=== PATIENT | female | born 1975 | race Caucasian/White ===

== ENCOUNTER 2017-08-23 19:12 | Emergency (ER) | payer MEDICAID, SELFPAY ==
[2017-08-23 19:13] VITALS: BP 138/87; PULSE 100; RESP 18; TEMP 36.6; O2SAT 100; BMI 23.3
--- NOTE | 2017-08-23 19:39 | ED.RN ---
[facility] TO HAVE THE LANDSCAPE ENGINEERCONCESSION STAND ATTENDANT TALK TO DR. HUYNH. KEISHA IS LANDSCAPE ENGINEER AND STATED HE IS AT THE CORRECTION AND CAN CALL US BACK IN AN HOUR.
[2017-08-23] MEDS: LORazepam 1 MG Tablet PO (19:41)
--- NOTE | 2017-08-23 19:53 | NURSING ---
WAITING TO HEAR BACK FROM THE COUNSELING CENTER.
--- NOTE | 2017-08-23 20:42 | ED.RN ---
KEISHA FROM [facility] JUST CALLED BACK TO SPEAK WITH DR. HUYNH
--- NOTE | 2017-08-23 21:35 | NURSING ---
[facility] HAS ARRIVED AND IS TALKING WITH THE PT.
--- NOTE | 2017-08-23 21:42 | ED.RN ---
KEISHA IS HERE TO SEE PATIENT.
[2017-08-23 22:02] VITALS: PULSE 97; RESP 16; O2SAT 100
--- NOTE | 2017-08-23 22:05 | EKG12_ITS ---
Test Reason : MEDICAL RELEASE Blood Pressure : / mmHG Vent. Rate : 085 BPM Atrial Rate : 085 BPM P-R Int : 174 ms QRS Dur : 086 ms QT Int : 364 ms P-R-T Axes : 063 047 055 degrees QTc Int : 433 ms Normal sinus rhythm Normal ECG Confirmed by ZACHARY AGUILAR, MONTRELL ([id number]), editorial cartoonist VICTOR M EVANS ([id number]) on 08/27/2017 2:19:11 PM Referred By: LINO Confirmed By:MONTRELL SHARMA MD
--- NOTE | 2017-08-23 22:11 | NURSING ---
PT TOLD CRISIS THAT SHE IS NOW HAVING AUDITORY HALLUCINATIONS AND WANTING TO KILL HERSELF. WHICH WAS NOT STATED TO ME OR THE DOCTOR PREVIOUSLY, THE PT HAD REPEATEDLY SAID THAT SHE WANTED TO BE ADMITTED TO A FACILITY.
[2017-08-23 22:28] LABS: Absolute Lymphocyte Count 2.91 X10^3/ul (0.83-4.51); Absolute Neutrophil Count 4.3 X10^3/uL (2.0-7.7); Basophil# 0.18 X10^3/uL; Basophil% 2.1 % (0-1); Eosinophil# 0.33 X10^3/uL; Eosinophils% 3.8 % (0-5); Hematocrit 30.7 % (37-47); Hemoglobin 9.1 g/dl (12.0-15.0); Lymphocyte # 2.91 X10^3/ul (4.0); Lymphocyte % 33.8 % (19-41); Mean Corp Hgb Conc 29.6 g/gl (32-36); Mean Corpuscular Hgb 23.3 pg (27.0-32.0); Mean Corpuscular Volume 78.7 fL (81-99); Mean Platelet Vol. 9.2 fl (6.2-12.0); Monocyte# 0.83 X10^3/uL; Monocyte% 9.7 % (0-10); Neutrophil # 4.34 X10^3/uL (2.7-7.7); Neutrophil % 50.5 % (47-70); POSITIVE COUNT NO; POSITIVE DIFFERENTIAL NO; POSITIVE MORPHOLOGY NO; Platelet Count 448 K/mm3 (150-450); RBC Distribution Width CV 19.5 % (11.6-14.6); RBC Distribution Width SD 56.1 fl (35.1-43.9); White Blood Count 8.6 K/mm3 (4.4-11.0)
[2017-08-23 22:41] LABS: Anion Gap 9 (5-15); BUN 17 mg/dL (7-18); BUN/Creat Ratio 17.5 RATIO (10-20); Calcium,Total 8.3 mg/dL (8.5-10.1); Chloride 110 mmol/L (98-107); Creatinine, Serum 0.97 mg/dL (0.55-1.02); EST Glomerular Filtration Rate 68 mL/min (>60); Est Glom Filt Rate - Afr Amer 82 mL/min (>60); Estimated Creatinine Clearance 70.07 ml/min; Glucose 119 mg/dL (74-106); Potassium 3.8 mmol/L (3.5-5.1); Sodium Level 142 mmol/L (136-145)
[2017-08-23 22:43] LABS: AST(SGOT) 17 U/L (15-37); Alanine Aminotransfer ALT/SGPT 19 U/L (13-56); Alkaline Phosphatase 100 U/L (45-117); Bilirubin, Direct < 0.05 mg/dL (0.00-0.30); Globulin 4.3 g/dL (2.2-4.2); Protein, Total 7.3 g/dL (6.4-8.2)
[2017-08-23 22:51] LABS: Alcohol, Blood (Medical)-Serum < 3.0 mg/dL
[2017-08-23 22:53] LABS: Bacteria 0 SEEN /hpf (None Seen); Mucous, Urine 0 SEEN /hpf (<or=2+)
[2017-08-23 22:55] LABS: Color, Urine Yellow (Yellow); Glucose, Dipstick Normal (Normal); Ketone-Dipstick 5 mg/dl (Negative); Leukocyte Esterase-Dipstick 25 /ul (Negative); Nitrite-Dipstick Negative (Negative); Occult Blood-Urine 50 /ul (Negative); Protein-Dipstick 15 mg/dl (Negative); Specific Gravity, Urine 1.025 (1.002-1.030); Urine Bilirubin Dipstick Negative (Negative); Urine Clarity Sl. Cloudy (Clear); Urine Urobilinogen 1 mg/dl (Normal)
[2017-08-23 22:57] LABS: Internal QC Validated? YES +Cl - CLEAR BKGD; Pregnancy, Urine Negative Negative
[2017-08-23 22:59] LABS: Amphetamine Urine VISTA POSITIVE (<1000 ng/mL); Barbiturate Urine VISTA NEGATIVE (< 200 ng/mL); Benzodiazepine Urine VISTA NEGATIVE (< 200 ng/mL); Cocaine Urine VISTA NEGATIVE (< 300 ng/mL); Ecstacy Urine VISTA POSITIVE (< 500 ng/mL); Methadone Urine VISTA NEGATIVE (< 300 ng/mL); PCP Urine VISTA NEGATIVE (< 25 ng/mL); THC Urine VISTA POSITIVE (< 50 ng/mL); Vista UDS pH Range 6
[2017-08-23 23:06] LABS: Uric Acid Crystals Ur 1+ /hpf (<or=1+)
[2017-08-23 23:07] LABS: Calcium Oxalate Crystals Ur 1+ /hpf (<or=2+)
[2017-08-23 23:08] LABS: Red Blood Cells-Urine 0-5 SEEN /hpf (0-5); Squamous Epithelial Cells - UA 0-5 SEEN /hpf (5-10); White Blood Cells 0-5 SEEN /hpf (0-5)
--- NOTE | 2017-08-23 23:15 | ED.VISSUMM ---
- ER Visit Summary Date of Service: 08/23/17 Chief Complaint: I am under so much stress History of Present Illness: The patient is a 41 F who presents with chief complaint of I am under so much stress. She states that this is been going on a long time. She would not give a clear answer on duration of symptoms. She states that she is depressed because I have nobody to talk to and nobody to cry to. She denied suicidal ideation homicidal ideation and ability to care for herself or hallucinations to me on initial history. She states that she is a former methamphetamine user but denies any current drug use. She is a smoker. She does note that she has missed multiple psychiatric appointments as an outpatient. Her primary care physician does present an anti-depressant. She denies recent medical illness such as fever chest pain shortness of breath vomiting diarrhea. She states that she wants to be hospitalized to get a break. Physical Examination: Afebrile vitals unremarkable Moist mucous membranes Heart regular rate and rhythm Lungs are clear Abdomen soft Extremities nontender Alert and oriented Patient denies suicidal or homicidal ideation Patient is tearful and anxious Test Results: EKG shows normal sinus rhythm at a rate of 85. CBC notable for anemia which appears to be at baseline. BMP unremarkable. Hepatic function unremarkable urinalysis unremarkable. Alcohol negative. Urine drug screen is positive for amphetamine, methamphetamine, cannabinoids. Emergency Department Course and Treatment: Initially the patient was denying any suicidal or homicidal ideation or hallucinations. She was given Ativan. I discussed with her that I did not feel she met hospitalization criteria. She states a family member had called crisis and she was under the impression that someone was coming in to speak to her. Crisis did come in and see the patient and evaluate her here. The patient now reports to crisis that she is in fact suicidal and that she is also having auditory hallucinations. Therefore it was felt that she would require hospitalization. Plan at the time of this dictation is transferred to a psychiatric facility. Treatment Plan: [] Disposition: Transfer Impression: Suicidal ideation Auditory hallucinations Depression This note was generated with [employer] dictation software. It may contain incorrect words, spelling, and punctuation that were not noted in review of the chart prior to signing ED Disposition - Plan for ED Patient: Chief Complaint: Mental Health Referrals: Arnulfo Alvarez MD [Primary Care Provider] -
[2017-08-23 23:45] VITALS: BP 120/65; PULSE 101; RESP 16; O2SAT 98
[2017-08-24 00:11] VITALS: PULSE 100; RESP 18; O2SAT 99
[2017-08-24 02:27] VITALS: BP 131/68; PULSE 102; RESP 18; O2SAT 100
[2017-08-24 02:59] VITALS: BP 130/68; PULSE 102; RESP 18; O2SAT 99
== END 2017-08-24 03:00 | disposition home or self-care (01) ==
PROVIDERS: Emergency Provider Emergency Medicine; Family Provider Family Medicine; PCP Family Medicine
DX: F32.9 Major depressive disorder, single episode, unspecified (principal); R44.0 Auditory hallucinations; R45.851 Suicidal ideations; F17.200 Nicotine dependence, unspecified, uncomplicated; F15.21 Other stimulant dependence, in remission
CPT/HCPCS: 80048; 80076; 80307; 80320; 81001; 81025; 85025; 93005; 99284; G0480

== ENCOUNTER 2018-12-08 17:52 | Emergency (ER) | payer MEDICAID, SELFPAY ==
[2018-12-08 17:53] VITALS: BP 124/77; PULSE 82; RESP 15; TEMP 37.2; O2SAT 97; BMI 26.6
--- NOTE | 2018-12-08 18:21 | ED.DCSUM_ITS ---
History of Present Illness Chief Complaint: Eye Problem Informant: Patient Onset: Today Narrative: Noted redness and crusting with pus to the left eye while driving home today. States felt like something popped. Patient does not wear contacts. Denies injury. Reports skin with sinus drainage has been blowing hard from her nose. Patient wears glasses. No contacts. No fevers. No photophobia. Denies any itching. No other complaints. Past Medical History - Allergies and Home Meds Allergies/Adverse Reactions: Allergies No Known Allergies Allergy (Verified 08/23/17 19:15) Primary Care Physician: Arnulfo Alvarez MD [Primary Care Provider] - Surgical History: - - Salpingectomy, Facial surgery, D+C, L neck lymph node resection, x 1. Smoking Status: Current some day smoker - Family History Maternal Family History: Reports: Heart Disease - Mother w/ history of HTN, CHF. Paternal Family History: Reports: Heart Disease - Father w/ history of CAD, s/p CABG x 4. Review of Systems General: Denies: Chills, Fever, Sweats Eyes: Reports: - - Redness, drainage. Denies: Visual changes - bilaterally, Diplopia ENT: Denies: Rhinorrhea, Sore throat Cardiovascular: Denies: Chest pain, Palpitations Respiratory: Denies: Dyspnea, Cough, Dyspnea on exertion Gastrointestinal: Denies: Abdominal pain, Nausea, Vomiting, Diarrhea, Melena, Hematochezia Genitourinary: Denies: Dysuria, Hematuria, Frequency Musculoskeletal: Denies: Back pain, Extremity Pain Skin: Denies: Rash, Wounds Neurological: Denies: Headache, Weakness, Numbness Physical Exam Vital Signs/Narrative: Vital Signs Temp Pulse Resp BP Pulse Ox 12/08/18 17:53 98.9 F 82 15 124/77 H 97 Inital Vital Signs reviewed: Yes General: Well nourished, Well developed, No Acute Distress Head: Normocephalic, Atraumatic Eyes: Perrl, EOMI, - - Visual acuity: 20/40 OD, 20/30 OS. Left eyelid everted no foreign bodies. There is erythema lateral sclera, chemosis. There is no subconjunctival hemorrhage, no hyphema. Pupils equal reactive to light bilaterally. ENT: Moist mucous membranes, No rhinorrhea Neck: Supple, Nontender Cardiovascular: Regular rate, Regular rhythm, No murmurs Respiratory: No distress, CTA bilaterally, Chest nontender Abdomen: Soft, Nontender, Nondistended, Normal bowel sounds Back: Nontender, Normal Inspection Extremities: Nontender, No edema Skin: Normal color, No rash Neurological: Alert, Oriented x3, Cranial nerves II-XII grossly intact, Normal Strength, Normal Sensation Psychological: Normal affect, Normal Mood Diagnostic/Tx/Re-eval - Medical Decision Making Patient visual acuity stable without glasses. Left eye is better in the right eye. Patient's history report, concerns are most potential causes that could be subconjunctival hemorrhage versus conjunctivitis with infection. However exam does not show hematoma shows erythema in chemosis findings that would be findings normally seen with allergic conjunctivitis. She did however denies any pleuritic symptoms. With her crusting for which she states is exudative, will placed on antibiotic drops twice a day for 7 days. She will follow-up with ophthalmology for which she states she is seeing [facility] in the past. All questions were answered. ED Disposition - Plan for ED Patient: Disposition: Home or Assisted Living Diagnosis: Conjunctivitis, left eye Instructions: ED Conjunctivitis Nonspecific Prescriptions: Polymyxin B Sulf/Trimethoprim [Polytrim Eye Drops] 1 drop LEFT EYE BID #1 bottle Referrals: Arnulfo Alvarez MD [Primary Care Provider] - Letty Rader MD [STAFF PHYSICIAN] - 1 Day
== END 2018-12-08 18:40 | disposition home or self-care (01) ==
LOC: ED 18:39
PROVIDERS: Emergency Provider Emergency Medicine; Family Provider Physician Assistant; PCP Physician Assistant
DX: H10.9 Unspecified conjunctivitis (principal); F17.200 Nicotine dependence, unspecified, uncomplicated
CPT/HCPCS: 99282

== ENCOUNTER 2022-09-28 21:25 | Emergency (ER) | payer MEDICAID, SELFPAY ==
[2022-09-28 21:26] VITALS: BP 150/97; PULSE 85; RESP 18; TEMP 36.6; O2SAT 97; BMI 29.5
[2022-09-28] MEDS: Diphth,Pertuss(Acell),Tet Vac 0.5 ML Vial IM (22:27)
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
== END 2022-09-28 23:13 | disposition home or self-care (01) ==
PROVIDERS: Emergency Provider Emergency Medicine; PCP Physician Assistant; Visit Provider Emergency Medicine
DX: S01.112A Laceration without foreign body of left eyelid and periocular area, initial encounter (principal); W20.8XXA Other cause of strike by thrown, projected or falling object, initial encounter; Y92.810 Car as the place of occurrence of the external cause; F17.210 Nicotine dependence, cigarettes, uncomplicated; Z23 Encounter for immunization
CPT/HCPCS: 12051; 90471; 90715; 99282

== ENCOUNTER 2024-07-07 17:04 | Emergency (ER) | payer MEDICAID, SELFPAY ==
[2024-07-07 17:05] VITALS: BP 175/111; PULSE 118; RESP 24; TEMP 36.8; O2SAT 95
--- NOTE | 2024-07-07 18:03 | EDS_ITS ---
HPI History of Present Illness Chief Complaint: Shortness of Breath Narrative Narrative: 48-year-old female presents with increased difficulty breathing. She started having URI symptoms over the weekend, 4 to 5 days ago. She states she called off work on Friday and Friday, yesterday and the day before. She was seen at [facility] last night where they performed a chest x-ray which was negative, and she was positive for RSV. While she was written a prescription for an albuterol MDI with spacer device and prednisone, she has an albuterol nebulizer at home that she has been using and had to use a few times today because of shortness of breath and wheezing. She states she has had a hoarse voice today as well. She took leftover prednisone that she had stopped taking from her previous prescription recently and took 20 mg last night and 20 mg today. She presents because she states she had increased difficulty breathing, and is concerned about concomitant infection because she coughed up brownish colored phlegm. [facility] Medical History Ruptured ectopic Home Medications ?Medication ?Instructions ?Recorded ?Last Taken ?Type bupropion HCl 150 mg 24 hr tablet, 150 mg PO DAILY depression 07/10/17 07/09/17 10:00 History extended release (Wellbutrin XL) 1 ferrous gluconate 236 mg (27 mg 236 mg PO DAILY 08/23/17 Unknown History iron) tablet polymyxin B sulfate 10,000 1 drp BID ##1 12/08/18 Unknown Rx unit-trimethoprim 1 mg/mL eye drops (Polytrim) albuterol sulfate 2.5 mg/3 mL 2.5 mg (3 mL) inhalation Q4H PRN 07/07/24 Unknown Rx (0.083 %) solution for nebulization #25 vials Allergy/AdvReac Type Severity Reaction Status Date / Time No Known Allergies Allergy Verified 07/07/24 17:05 Social History Smoking Status: Current some day smoker tobacco type: cigarettes ROS ROS ED ROS Narrative Constitutional: Positive fever, no chills. HEENT: Reports hoarseness of voice earlier today. Cardiovascular: Positive chest pain/tightness. No palpitations. No pedal edema. Respiratory: Positive wheezing, cough, positive shortness of breath. Positive dyspnea. Abdominal: No abdominal pain but abdominal fullness in the epigastrium. No nausea. No vomiting. Musculoskeletal: No myalgias. No arthralgias. EXAM Physical Exam Narrative Exam Narrative: Afebrile. Vital signs noted. Nontoxic-appearing. Cardiovascular examination reveals mild tachycardia. She has slight expiratory wheezing in the bilateral bases. Mild tachypnea. No distress. Abdomen soft nontender, positive bowel sounds. Neurological examination nonfocal and nonlateralizing. Const Vital Signs: 07/07/24 17:05 07/07/24 17:15 07/07/24 18:08 Temperature 98.2 F Temperature Source Oral Pulse Rate 118 H 84 Respiratory Rate 24 H 17 Respiratory Effort Short of Breath Respiratory Depth Normal Respiratory Pattern Tachypnea Normal Blood Pressure 175/111 H Blood Pressure Mean 132 Pulse Ox 95 Oxygen Delivery Method Room Air Room Air 07/07/24 18:36 Temperature Temperature Source Pulse Rate Respiratory Rate Respiratory Effort Respiratory Depth Respiratory Pattern Blood Pressure Blood Pressure Mean Pulse Ox 93 Oxygen Delivery Method Room Air MDM MDM MDM Narrative Medical decision making narrative: Differential diagnosis includes but not limited to pneumonia versus RSV/viral syndrome. I discussed the utility of a repeat chest x-ray with the patient, and she just had a chest x-ray performed at [facility] last night. Her pulse ox is 95% on room air. I do feel that with her positive RSV swab which she states she received in [facility] today, that she should continue symptomatic treatment. She was given an albuterol nebulizer treatment here/aerosol treatment. While she has already taken 20 mg of prednisone today, I do feel that a loading dose of 40 mg would benefit her as well. She states that she only took 20 mg because she does not like the way prednisone makes her feel. I do not feel she requires other testing given her positive RSV swab. She states she already has a prednisone prescription and albuterol MDI with spacer written for her that she has not picked up from the pharmacy yet secondary to the July 07 holiday. I will write her prescription for more nebulizer treatments as she states this seems to be working more for her. I do not feel she needs antibiotics. I feel she can be discharged with follow-up to her primary care provider. Upon repeat examination at approximately 1905, she is resting comfortably on the cot. Upon repeat auscultation she is moving a good amount of air. She has less prolongation of the expiratory phase and less wheezing. At this point in time, she will be discharged to continue aerosolized treatments as I wrote her prescription for a refill of these and she can use her albuterol MDI when needed as well as the prednisone that was already written for her. She will follow-up with her primary care provider. Return instructions to the emergency department were reviewed. Disposition is discharged home in stable condition. History & Record Review Discussion w/independent historian: Patient Discharge Plan Triage Chief Complaint: Shortness of Breath ED Provider: Tito New Dx/Rx/DC Orders Clinical Impression: Respiratory syncytial virus (RSV), Bronchitis with wheezing Instructions: RSV (Respiratory Syncytial Virus), ED Bronchitis with Wheezing (Adult) Prescriptions: New albuterol sulfate 2.5 mg /3 mL (0.083 %) solution for nebulization 2.5 mg inhalation Q4H PRN Qty: 25 0RF Rx Instructions: Use q4 hours and PRN for wheezing No Action bupropion HCl [Wellbutrin XL] 150 MG tablet extended release 24 hr 150 mg PO DAILY ferrous gluconate 236 MG tablet 236 mg PO DAILY polymyxin B sulf-trimethoprim [Polytrim] 10 ML drops 1 drp Left Eye BID Qty: 1 0RF Rx Instructions: x 7days Primary Care Provider: Eryn Fay Referrals: Eryn Fay, [employer] [Primary Care Provider] - 3-5 Days if not improving Activity Restrictions/Additional Instructions: Return with sustained high fever, increased difficulty breathing even if on prednisone and albuterol, new or worsening symptoms. Print Language: Hebrew Disposition Disposition: Home, Self Care
[2024-07-07 18:08] VITALS: PULSE 84; RESP 17
[2024-07-07] MEDS: Albuterol 2.5 MG/3 ML VIAL.NEB. INHALATION (18:08)
[2024-07-07] MEDS: predniSONE 20 MG Tablet 40 MG PO (18:08)
[2024-07-07 18:36] VITALS: O2SAT 93
[2024-07-07 19:10] VITALS: BP 122/77; PULSE 101; RESP 18; TEMP 37.2; O2SAT 92
== END 2024-07-07 19:13 | disposition home or self-care (01) ==
PROVIDERS: Emergency Provider Emergency Medicine; PCP Clinical Nurse Specialist Adult Health; Visit Provider Emergency Medicine
DX: J40 Bronchitis, not specified as acute or chronic (principal); R06.2 Wheezing; B97.4 Respiratory syncytial virus as the cause of diseases classified elsewhere
CPT/HCPCS: 94640; 99283

== ENCOUNTER 2025-03-09 17:23 | Emergency (ER) | payer MEDICAID, SELFPAY ==
[2025-03-09 17:24] VITALS: BP 148/93; PULSE 103; RESP 18; TEMP 36.6; O2SAT 98; BMI 34.3
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
[2025-03-09] MEDS: Lidocaine/Epi/Tetracaine 50 ML 3 APPLIC TOPICAL (18:10)
[2025-03-09 18:24] VITALS: BP 140/94; PULSE 78; RESP 14; O2SAT 98
[2025-03-09] MEDS: Lidocaine 1%/Epi 1:100 (30ml) 30 ML VIAL 5 ML INFILT (18:38)
[2025-03-09 19:00] VITALS: BP 132/80; PULSE 81; RESP 16; O2SAT 97
[2025-03-09 20:54] VITALS: BP 132/80; PULSE 85; RESP 16; O2SAT 98
== END 2025-03-09 20:56 | disposition home or self-care (01) ==
PROVIDERS: Emergency Provider Emergency Medicine; PCP Clinical Nurse Specialist Adult Health; Visit Provider Emergency Medicine
DX: S01.91XA Laceration without foreign body of unspecified part of head, initial encounter (principal); V89.2XXA Person injured in unspecified motor-vehicle accident, traffic, initial encounter; Z87.891 Personal history of nicotine dependence; Y92.410 Unspecified street and highway as the place of occurrence of the external cause; F41.9 Anxiety disorder, unspecified
CPT/HCPCS: 12013; 70450; 72125; 90715; 99284

== ENCOUNTER 2025-03-24 16:10 | Emergency (ER) | payer MEDICAID, SELFPAY ==
[2025-03-24 16:11] VITALS: BP 146/96; PULSE 113; RESP 18; TEMP 36.9; O2SAT 97; BMI 33.1
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
[2025-03-24 17:16] VITALS: BP 137/92; PULSE 87; RESP 18; TEMP 37.7; O2SAT 97
== END 2025-03-24 17:23 | disposition home or self-care (01) ==
PROVIDERS: Emergency Provider Emergency Medicine; PCP Clinical Nurse Specialist Adult Health; Visit Provider Emergency Medicine
DX: H60.12 Cellulitis of left external ear (principal); Z87.891 Personal history of nicotine dependence; S01.312D Laceration without foreign body of left ear, subsequent encounter; V89.2XXD Person injured in unspecified motor-vehicle accident, traffic, subsequent encounter
CPT/HCPCS: 99282